=== PATIENT | male | born 1970 ===

== ENCOUNTER 2016-10-26 13:42 | Emergency (ER) | payer OTHER ==
[2016-10-26 13:57] VITALS: BP 147/90; PULSE 65; RESP 18; TEMP 98.4; O2SAT 98
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
[2016-10-26] MEDS ORDERED: Amoxicillin-Clav 875-125 mg Tab PO STA (16:58)
[2016-10-26] MEDS ORDERED: TDAP Vaccine 0.5 mL Syr IM ONE (17:00)
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
[2016-10-26] MEDS ORDERED: Amoxicillin-Clav 875-125 mg Tab PO ONE (17:07)
== END 2016-10-26 17:21 | disposition home or self-care (01) ==
LOC: H.ER 13:42
DX: S41.132A Puncture wound without foreign body of left upper arm, initial encounter (principal); W22.8XXA Striking against or struck by other objects, initial encounter; Y92.89 Other specified places as the place of occurrence of the external cause; R20.2 Paresthesia of skin

== ENCOUNTER 2017-06-13 02:50 | Emergency (ER) | payer OTHER ==
[2017-06-13 03:02] VITALS: BMI 30.4
[2017-06-13 03:05] VITALS: BP 193/81; PULSE 88; RESP 18; TEMP 98.4; O2SAT 98
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
[2017-06-13] MEDS ORDERED: Sodium Chloride 0.9% 1,000 ML IV STA (03:09)
[2017-06-13] MEDS ORDERED: Alum-Mag Hydrox-Simethicone Susp (30 mL) PO STA (03:21)
[2017-06-13] MEDS ORDERED: Alum-Mag Hydrox-Simethicone Susp (30 mL) ONE (03:28)
[2017-06-13 03:33] LABS: BASO % 0.2 % (0.0-2.0); EOS % 0.6 % (0.0-4.0); HEMOGLOBIN 15.2 g/dL (12.0-18.0); LYMPH # 3.3 K/uL (1.0-4.3); LYMPH % 42.5 % (20.0-40.0); MEAN CELL VOLUME 86.5 fl (80.0-94.0); MEAN CORPUSCULAR HEMOGLOBIN 30.2 pg (27.0-31.0); MEAN CORPUSCULAR HGB CONC 34.9 g/dL (33.0-37.0); MEAN PLATELET VOLUME 7.9 fl (7.2-11.7); MONO # 0.4 K/uL (0.0-0.8); MONO % 5.1 % (0.0-10.0); NEUT % 51.6 % (50.0-75.0); NRBC % 0.2 % (0.0-0.0); RBC 5.04 Mil/uL (4.40-5.90); RED CELL DISTRIBUTION WIDTH 13.3 % (11.5-14.5); WHITE BLOOD COUNT 7.8 K/uL (4.8-10.8)
[2017-06-13 03:40] LABS: ALB/GLOB RATIO 1.3 (1.0-2.1); ALBUMIN 4.6 g/dL (3.5-5.0); ALT/SGPT 67 U/L (21-72); AST/SGOT 66 U/L (17-59); CALCIUM 9.3 mg/dL (8.4-10.2); GFR AFRICAN-AMERICAN > 60; GFR NON-AFRICAN AMERICAN 60; LIPASE 44 U/L (23-300)
[2017-06-13 03:45] LABS: BLOOD UREA NITROGEN 22 mg/dl (9-20)
--- NOTE | 2017-06-13 08:01 | CARD ---
APPROVED REPORT EKG Measurement Heart [id number] AL [id number] <Conclusion> Normal sinus rhythm Normal ECG
--- NOTE | 2017-06-13 10:57 | RAD ---
HISTORY: pain COMPARISON: No prior. FINDINGS: LUNGS: No active pulmonary disease. PLEURA: No significant pleural effusion identified, no pneumothorax apparent. CARDIOVASCULAR: Normal. OSSEOUS STRUCTURES: No significant abnormalities. VISUALIZED UPPER ABDOMEN: Normal. OTHER FINDINGS: None. IMPRESSION: No active disease.
== END 2017-06-13 05:30 | disposition home or self-care (01) ==
LOC: H.ER 02:50
DX: K52.9 Noninfective gastroenteritis and colitis, unspecified (principal); I10 Essential (primary) hypertension; R00.2 Palpitations
CPT/HCPCS: 71045; 80053; 80320; 83690; 84484; 85025; 93005; 99283; J2405; J7040

== ENCOUNTER 2017-06-17 01:12 | Emergency (ER) | payer OTHER ==
[2017-06-17 01:12] VITALS: BMI 30.4
[2017-06-17 01:27] VITALS: RESP 18; TEMP 98.4; O2SAT 97
[2017-06-17] MEDS ORDERED: Alum-Mag Hydrox-Simethicone Susp (30 mL) PO ONE (02:00)
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
[2017-06-17 02:27] LABS: BASO % 0.6 % (0.0-2.0); EOS % 0.7 % (0.0-4.0); HEMOGLOBIN 14.6 g/dL (12.0-18.0); LYMPH # 2.2 K/uL (1.0-4.3); LYMPH % 31.7 % (20.0-40.0); MEAN CORPUSCULAR HEMOGLOBIN 29.3 pg (27.0-31.0); MEAN CORPUSCULAR HGB CONC 33.6 g/dL (33.0-37.0); MEAN PLATELET VOLUME 7.8 fl (7.2-11.7); MONO # 0.4 K/uL (0.0-0.8); NEUT # 4.2 K/uL (1.8-7.0); NRBC % 0.1 % (0.0-0.0); RBC 4.98 Mil/uL (4.40-5.90); WHITE BLOOD COUNT 6.8 K/uL (4.8-10.8)
[2017-06-17 02:47] LABS: ALB/GLOB RATIO 1.3 (1.0-2.1); ALBUMIN 4.7 g/dL (3.5-5.0); ALT/SGPT 61 U/L (21-72); AST/SGOT 53 U/L (17-59); BLOOD UREA NITROGEN 24 mg/dl (9-20); CALCIUM 9.3 mg/dL (8.4-10.2); GFR AFRICAN-AMERICAN > 60; GFR NON-AFRICAN AMERICAN > 60; LIPASE 53 U/L (23-300)
[2017-06-17 04:43] VITALS: BP 127/63; PULSE 71
--- NOTE | 2017-06-17 12:47 | CARD ---
APPROVED REPORT EKG Measurement Heart [id number] <Conclusion> Normal sinus rhythm Normal ECG
--- NOTE | 2017-06-17 15:00 | RAD ---
HISTORY: dyspnea COMPARISON: 06/13/2017 TECHNIQUE: Chest PA and lateral FINDINGS: LUNGS: No active pulmonary disease. PLEURA: No significant pleural effusion identified. No pneumothorax apparent. CARDIOVASCULAR: Normal. OSSEOUS STRUCTURES: No significant abnormalities. VISUALIZED UPPER ABDOMEN: Normal. OTHER FINDINGS: None. IMPRESSION: No active disease.
== END 2017-06-17 04:43 | disposition home or self-care (01) ==
LOC: H.ER 01:12
DX: I10 Essential (primary) hypertension (principal)
CPT/HCPCS: 71020; 80053; 83690; 84484; 85025; 93005; 96374; 99284; J2405